=== PATIENT | female | born 1995 | race Caucasian/White ===

== ENCOUNTER 2025-08-28 16:16 | Emergency (ER) | payer OTHER, SELFPAY ==
--- OUTSIDE RECORDS SUMMARY | 2013-12-24 06:41 | XMS_ITS | Continuity of Care Document ---
Author Organization [facility] Address [address] [place] [address] Phone Care Team Providers Care Call Or Contact Centre Operator Name Role Phone NonClinical, Staff Unavailable Unavailable Problems Condition Type Effective Dates (start - stop) Clini kevin Status Comments No Known Problems Advance Directives Directive Yes / No Effective Date File Name No Information Encounters Encounter Description Practice Location Reason(s) For Visit Diagnoses Date Provider Providers Copied on Encounter [facility], [address], [place], [id number], [place] tel:[phone] [facility] No Information [phone] NonClinical Staff. . Family History Family Member Type Diagnosis Age At Onset No Information Payers Payer name Insurance type Covered alliance party ID Authoriza tion(s) No Information Social History Type Description Quantity Date Captured Comments Sex Female Smoking Status No Information Chief Complaint And Reason For Visit No Information Reason For Referral Reason For Referral No Information History Of Present Illness Encounter Date Complaint History Of Prese nt Illness No Information Functional Status Date Functional Assessmen t No Information Instructions Date Instruction Additional Infor mation No Information Assessments Type Assessment Date No Information Patient Care Teams Name Effective Dates (start - stop) Status Members No Information
--- OUTSIDE RECORDS SUMMARY | 2025-01-08 11:15 | XMS_ITS ---
Author Organization [facility] Address [address] [facility] [place] [address] Care Team Providers Care Track Machine Operator Repairer Name Role Phone Rodger Ortiz MD Primary Care Provider Yo Arriaga Unavailable [phone] Dagoberto Giron JR Unavailable [phone] REASON FOR VISIT [id number] 1 week f/u - Chronic Fatigue Medications Medication SIG (Take, Route, Frequency, Duration) Notes Start Date End Date Status CeleXA 10 MG Tablet 1 tablet Orally daily; Duration: 30 days 12/18/2024 Not-Taking Senna 8.6 MG Tablet 2 tablets at bedtime as needed Orally Once a day Not-Taking Fludrocortisone Acetate 0.1 MG Tablet 2 tablets Orally Once a day; Duration: 30 days 01/07/2025 07/06/2025 Active Dicyclomine HCl 10 MG Capsule 1 tablet Orally one time a day Active Encounters Encounter Location Date Provider Diagnosis [facility] [address] [place] [address], [place] [address] 01/08/2025 Dagoberto Giron Chronic fatigue R53.82 ; Fever of unknown origin (FUO) R50.9 ; Malaise R53.81 ; Unspecified abdominal pain R10.9 and Other chronic pain G89.29 Assessments Encounter Date Diagnosis (ICD Code) Assessment Notes Treatment Notes Treatment Clinical Notes Section Notes 01/08/2025 Chronic fatigue (ICD-10 - R53.82) 1. 28 yo female with chronic malaise, fatigue, fever, leading to inability to hold a long time job 2. Unable to get weight as patient felt dizzy. - screening KRISTY positive, but Quanative KRISTY negative. CRP and FRONT DESK SUPERVISOR both negative. -repeat KRISTY 12-18-24 results reviewed w/patient 3. CT chest/abdomen was denied by insurance. 4. Suspect depression, anxiety, as co-morbid factors. -seeing a therapist, possible diagnosis of Bipolar disorder - will defer depression meds to therapist at pt request. 5. Chest Xray ordered 01-01-25, not done as of 01-08-25 LABS: 08-20-24 W 7.2, CRP <.40, FRONT DESK SUPERVISOR .68, FERRITIN 32, KRISTY detected. Quanative KRISTY negative, BC no growth at 5 days, Quant TB neg, TSH .817 09-07-24 EBV 217.0, CMV DNA-PCR not detected 12-19-24 W 5.5, Stave Grader .60, CRP <.50, KRISTY detected 01-07-25 W 8.2, Stave Grader .66, CRP <.50 Follow up: Scribed by Cecelia Sotelo 01/08/2025 Fever of unknown origin (FUO) (ICD-10 - R50.9) 1. 28 yo female with chronic malaise, fatigue, fever, leading to inability to hold a long time job 2. Unable to get weight as patient felt dizzy. - screening KRISTY positive, but Quanative KRISTY negative. CRP and FRONT DESK SUPERVISOR both negative. -repeat KRISTY 12-18-24 results reviewed w/patient 3. CT chest/abdomen was denied by insurance. 4. Suspect depression, anxiety, as co-morbid factors. -seeing a therapist, possible diagnosis of Bipolar disorder - will defer depression meds to therapist at pt request. 5. Chest Xray ordered 01-01-25, not done as of 01-08-25 LABS: 08-20-24 W 7.2, CRP <.40, FRONT DESK SUPERVISOR .68, FERRITIN 32, KRISTY detected. Quanative KRISTY negative, BC no growth at 5 days, Quant TB neg, TSH .817 09-07-24 EBV 217.0, CMV DNA-PCR not detected 12-19-24 W 5.5, Stave Grader .60, CRP <.50, KRISTY detected 01-07-25 W 8.2, Stave Grader .66, CRP <.50 Follow up: Scribed by Cecelia Sotelo 01/08/2025 Malaise (ICD-10 - R53.81) 1. 28 yo female with chronic malaise, fatigue, fever, leading to inability to hold a long time job 2. Unable to get weight as patient felt dizzy. - screening KRISTY positive, but Quanative KRISTY negative. CRP and FRONT DESK SUPERVISOR both negative. -repeat KRISTY 12-18-24 results reviewed w/patient 3. CT chest/abdomen was denied by insurance. 4. Suspect depression, anxiety, as co-morbid factors. -seeing a therapist, possible diagnosis of Bipolar disorder - will defer depression meds to therapist at pt request. 5. Chest Xray ordered 01-01-25, not done as of 01-08-25 LABS: 08-20-24 W 7.2, CRP <.40, FRONT DESK SUPERVISOR .68, FERRITIN 32, KRISTY detected. Quanative KRISTY negative, BC no growth at 5 days, Quant TB neg, TSH .817 09-07-24 EBV 217.0, CMV DNA-PCR not detected 12-19-24 W 5.5, Stave Grader .60, CRP <.50, KRISTY detected 01-07-25 W 8.2, Stave Grader .66, CRP <.50 Follow up: Scribed by Cecelia Sotelo 01/08/2025 Unspecified abdominal pain (ICD-10 - R10.9) 1. 28 yo female with chronic malaise, fatigue, fever, leading to inability to hold a long time job 2. Unable to get weight as patient felt dizzy. - screening KRISTY positive, but Quanative KRISTY negative. CRP and FRONT DESK SUPERVISOR both negative. -repeat KRISTY 12-18-24 results reviewed w/patient 3. CT chest/abdomen was denied by insurance. 4. Suspect depression, anxiety, as co-morbid factors. -seeing a therapist, possible diagnosis of Bipolar disorder - will defer depression meds to therapist at pt request. 5. Chest Xray ordered 01-01-25, not done as of 01-08-25 LABS: 08-20-24 W 7.2, CRP <.40, FRONT DESK SUPERVISOR .68, FERRITIN 32, KRISTY detected. Quanative KRISTY negative, BC no growth at 5 days, Quant TB neg, TSH .817 09-07-24 EBV 217.0, CMV DNA-PCR not detected 12-19-24 W 5.5, Stave Grader .60, CRP <.50, KRISTY detected 02-11-25 W 8.2, Stave Grader .66, CRP <.50 Follow up: Scribed by Cecelia Sotelo 01/08/2025 Other chronic pain (ICD-10 - G89.29) 1. 28 yo female with chronic malaise, fatigue, fever, leading to inability to hold a long time job 2. Unable to get weight as patient felt dizzy. - screening KRISTY positive, but Quanative KRISTY negative. CRP and FRONT DESK SUPERVISOR both negative. -repeat KRISTY 12-18-24 results reviewed w/patient 3. CT chest/abdomen was denied by insurance. 4. Suspect depression, anxiety, as co-morbid factors. -seeing a therapist, possible diagnosis of Bipolar disorder - will defer depression meds to therapist at pt request. 5. Chest Xray ordered 01-01-25, not done as of 01-08-25 LABS: 08-20-24 W 7.2, CRP <.40, FRONT DESK SUPERVISOR .68, FERRITIN 32, KRISTY detected. Quanative KRISTY negative, BC no growth at 5 days, Quant TB neg, TSH .817 09-07-24 EBV 217.0, CMV DNA-PCR not detected 12-19-24 W 5.5, Stave Grader .60, CRP <.50, KRISTY detected 01-07-25 W 8.2, Stave Grader .66, CRP <.50 Follow up: Scribed by Cecelia Sotelo Plan Of Treatment No Information History and Physical Notes * HPI (History of Present Illness) Category Sub-Category Detail Notes Category Not es Provider Note Ms. Patel, a 28-year-old female, has been referred for chronic fatigue. She feels unwell and has been experiencing weakness, dizziness, and abdominal pain, especially during her monthly period. Despite consulting multiple physicians, she has not received a diagnosis for her condition. 08-20-24; did not get labs, did not get the Ct scan, now add low grade fevers and some PALMA to the diffuse abdominal pain. 09-02-24 doing well but feels like having the start of a cold today. Had holter monitor done by Dr. Ortiz at [facility]. Echocardiogram was normal. 12-18-24;just got over COVID, otherwise doing about the same. 01-01-25;feeling dizzy and very tired today. Feels like shes going to faint. 01-08-25; Progress Notes * Sandy PATEL DDOB:[birth year] (30 yo F)Acc No.[id number]:01/08/2025 Progress Notes Patient: Sandy Garcia Provider: Shahana Giron MD :1995 A ge:29 Y S ex:Female Date:01/08/2025 Address:[address] [place] [address], [place], [id number] Pcp:Rodger Ortiz MD Subjective: * Chief Complaints: * 6 [id number] 1 week f/u - Chronic Fatigue * HPI: P temo Note: Ms. Patel, a 28-year-old female, has been referred for chronic fatigue. She feels unwell and has been experiencing weakness, dizziness, and abdominal pain, especially during her monthly period. Despite consulting multiple physicians, she has not received a diagnosis for her condition. 08-20-24; did not get labs, did not get the Ct scan, now add low grade fevers and some PALMA to the diffuse abdominal pain. 09-02-24 doing well but feels like having the start of a cold today. Had holter monitor done by Dr. Ortiz at [facility]. Echocardiogram was normal. 12-18-24;just got over COVID, otherwise doing about the same. 01-01-25;feeling dizzy and very tired today. Feels like shes going to faint. 01-08-25;. * Medications: T akingDicyclomine HCl 10 MG Capsule 1 tablet Orally one time a day Fludrocortisone Acetate 0.1 MG Tablet 2 tablets Orally Once a day , stop date 07/06/2025Taking Dicyclomine HCl 10 MG Capsule 1 tablet Orally one time a day Taking Fludrocortisone Acetate 0.1 MG Tablet 2 tablets Orally Once a day , stop date 07/06/2025Not-TakingCeleXA 10 MG Tablet 1 tablet Orally daily Senna 8.6 MG Tablet 2 tablets at bedtime as needed Orally Once a day Not-Taking CeleXA 10 MG Tablet 1 tablet Orally daily Not-Taking Senna 8.6 MG Tablet 2 tablets at bedtime as needed Orally Once a day Assessment: * Assessment: 1. C hronic fatigue - R53.82 (Primary) 2 . F ever of unknown origin (FUO) - R50.9 3 . M alaise - R53.81 4 . U nspecified abdominal pain - R10.9 5 . O ther chronic pain - G89.29 1. 28 yo female with chronic malaise, fatigue, fever, leading to inability to hold a long time job 2. Unable to get weight as patient felt dizzy. - screening KRISTY positive, but Quanative KRISTY negative. CRP and FRONT DESK SUPERVISOR both negative. -repeat KRISTY 12-18-24 results reviewed w/patient 3. CT chest/abdomen was denied by insurance. 4. Suspect depression, anxiety, as co-morbid factors. -seeing a therapist, possible diagnosis of Bipolar disorder - will defer depression meds to therapist at pt request. 5. Chest Xray ordered 01-01-25, not done as of 01-08-25 LABS: 08-20-24 W 7.2, CRP <.40, FRONT DESK SUPERVISOR .68, FERRITIN 32, KRISTY detected. Quanative KRISTY negative, BC no growth at 5 days, Quant TB neg, TSH .817 09-07-24 EBV 217.0, CMV DNA-PCR not detected 12-19-24 W 5.5, Stave Grader .60, CRP <.50, KRISTY detected 01-07-25 W 8.2, Stave Grader .66, CRP <.50 Follow up: Scribed by Cecelia Sotelo Billing Information: * Procedure Codes: Care Plan Details* * Electronic signature of Jaime Giron JR, MD on 08/28/2025 at 04:22 PM CDT Sign off status: Pending * Provider: Shahana Giron MD Date: 0 01/08/2025 Generated for Nam barragan/Pia/eTransmshirley on: 1 04:22 PM CDT
--- OUTSIDE RECORDS SUMMARY | 2025-01-13 11:15 | XMS_ITS ---
Author Organization [facility] Address [address] [facility] [place] [address] Care Team Providers Care Commercial Technician Name Role Phone Rodger Ortiz MD Primary Care Provider Yo Arriaga Unavailable [phone] Dagoberto Giron JR Unavailable [phone] REASON FOR VISIT [id number] 1 week f/u - Chronic Fatigue Medications Medication SIG (Take, Route, Frequency, Duration) Notes Start Date End Date Status CeleXA 10 MG Tablet 1 tablet Orally daily; Duration: 30 days 12/18/2024 Not-Taking Dicyclomine HCl 10 MG Capsule 1 tablet Orally one time a day Active Senna 8.6 MG Tablet 2 tablets at bedtime as needed Orally Once a day Not-Taking Fludrocortisone Acetate 0.1 MG Tablet 2 tablets Orally Once a day; Duration: 30 days 01/07/2025 07/06/2025 Active Encounters Encounter Location Date Provider Diagnosis [facility] [address] [place] [address], [place] [address] 01/13/2025 Dagoberto Giron Chronic fatigue R53.82 ; Fever of unknown origin (FUO) R50.9 ; Malaise R53.81 ; Unspecified abdominal pain R10.9 and Other chronic pain G89.29 Assessments Encounter Date Diagnosis (ICD Code) Assessment Notes Treatment Notes Treatment Clinical Notes Section Notes 01/13/2025 Chronic fatigue (ICD-10 - R53.82) 1. 28 yo female with chronic malaise, fatigue, fever, leading to inability to hold a long time job 2. Unable to get weight as patient felt dizzy. - screening KRISTY positive, but Quanative KRISTY negative. CRP and PRODUCT SAFETY ASSOCIATE both negative. -repeat KRISTY 12-18-24 results reviewed w/patient 3. CT chest/abdomen was denied by insurance. 4. Suspect depression, anxiety, as co-morbid factors. -seeing a therapist, possible diagnosis of Bipolar disorder - will defer depression meds to therapist at pt request. 5. Chest Xray ordered 01-01-25, not done as of 01-09-25 LABS: 08-20-24 W 7.2, CRP <.40, PRODUCT SAFETY ASSOCIATE .68, FERRITIN 32, KRISTY detected. Quanative KRISTY negative, BC no growth at 5 days, Quant TB neg, TSH .817 09-07-24 EBV 217.0, CMV DNA-PCR not detected 12-19-24 W 5.5, Fish Farm Laborer .60, CRP <.50, KRISTY detected 01-07-25 W 8.2, Fish Farm Laborer .66, CRP <.50 Follow up: Scribed by Cecelia Sotelo 01/13/2025 Fever of unknown origin (FUO) (ICD-10 - R50.9) 1. 28 yo female with chronic malaise, fatigue, fever, leading to inability to hold a long time job 2. Unable to get weight as patient felt dizzy. - screening KRISTY positive, but Quanative KRISTY negative. CRP and PRODUCT SAFETY ASSOCIATE both negative. -repeat KRISTY 12-18-24 results reviewed w/patient 3. CT chest/abdomen was denied by insurance. 4. Suspect depression, anxiety, as co-morbid factors. -seeing a therapist, possible diagnosis of Bipolar disorder - will defer depression meds to therapist at pt request. 5. Chest Xray ordered 01-01-25, not done as of 01-09-25 LABS: 08-20-24 W 7.2, CRP <.40, PRODUCT SAFETY ASSOCIATE .68, FERRITIN 32, KRISTY detected. Quanative KRISTY negative, BC no growth at 5 days, Quant TB neg, TSH .817 09-07-24 EBV 217.0, CMV DNA-PCR not detected 12-19-24 W 5.5, Fish Farm Laborer .60, CRP <.50, KRISTY detected 01-07-25 W 8.2, Fish Farm Laborer .66, CRP <.50 Follow up: Scribed by Cecelia Sotelo 01/13/2025 Malaise (ICD-10 - R53.81) 1. 28 yo female with chronic malaise, fatigue, fever, leading to inability to hold a long time job 2. Unable to get weight as patient felt dizzy. - screening KRISTY positive, but Quanative KRISTY negative. CRP and PRODUCT SAFETY ASSOCIATE both negative. -repeat KRISTY 12-18-24 results reviewed w/patient 3. CT chest/abdomen was denied by insurance. 4. Suspect depression, anxiety, as co-morbid factors. -seeing a therapist, possible diagnosis of Bipolar disorder - will defer depression meds to therapist at pt request. 5. Chest Xray ordered 01-01-25, not done as of 01-09-25 LABS: 08-20-24 W 7.2, CRP <.40, PRODUCT SAFETY ASSOCIATE .68, FERRITIN 32, KRISTY detected. Quanative KRISTY negative, BC no growth at 5 days, Quant TB neg, TSH .817 09-07-24 EBV 217.0, CMV DNA-PCR not detected 12-19-24 W 5.5, Fish Farm Laborer .60, CRP <.50, KRISTY detected 01-07-25 W 8.2, Fish Farm Laborer .66, CRP <.50 Follow up: Scribed by Cecelia Sotelo 01/13/2025 Unspecified abdominal pain (ICD-10 - R10.9) 1. 28 yo female with chronic malaise, fatigue, fever, leading to inability to hold a long time job 2. Unable to get weight as patient felt dizzy. - screening KRISTY positive, but Quanative KRISTY negative. CRP and PRODUCT SAFETY ASSOCIATE both negative. -repeat KRISTY 12-18-24 results reviewed w/patient 3. CT chest/abdomen was denied by insurance. 4. Suspect depression, anxiety, as co-morbid factors. -seeing a therapist, possible diagnosis of Bipolar disorder - will defer depression meds to therapist at pt request. 5. Chest Xray ordered 01-01-25, not done as of 01-09-25 LABS: 08-20-24 W 7.2, CRP <.40, PRODUCT SAFETY ASSOCIATE .68, FERRITIN 32, KRISTY detected. Quanative KRISTY negative, BC no growth at 5 days, Quant TB neg, TSH .817 09-07-24 EBV 217.0, CMV DNA-PCR not detected 12-19-24 W 5.5, Fish Farm Laborer .60, CRP <.50, KRISTY detected 02-11-25 W 8.2, Fish Farm Laborer .66, CRP <.50 Follow up: Scribed by Cecelia Sotelo 01/13/2025 Other chronic pain (ICD-10 - G89.29) 1. 28 yo female with chronic malaise, fatigue, fever, leading to inability to hold a long time job 2. Unable to get weight as patient felt dizzy. - screening KRISTY positive, but Quanative KRISTY negative. CRP and PRODUCT SAFETY ASSOCIATE both negative. -repeat KRISTY 12-18-24 results reviewed w/patient 3. CT chest/abdomen was denied by insurance. 4. Suspect depression, anxiety, as co-morbid factors. -seeing a therapist, possible diagnosis of Bipolar disorder - will defer depression meds to therapist at pt request. 5. Chest Xray ordered 01-01-25, not done as of 01-09-25 LABS: 08-20-24 W 7.2, CRP <.40, PRODUCT SAFETY ASSOCIATE .68, FERRITIN 32, KRISTY detected. Quanative KRISTY negative, BC no growth at 5 days, Quant TB neg, TSH .817 09-07-24 EBV 217.0, CMV DNA-PCR not detected 12-19-24 W 5.5, Fish Farm Laborer .60, CRP <.50, KRISTY detected 01-07-25 W 8.2, Fish Farm Laborer .66, CRP <.50 Follow up: Scribed by [...] holter monitor done by Dr. Ortiz at [facility]. Echocardiogram was normal. 12-18-24;just got over COVID, otherwise doing about the same. 01-01-25;feeling dizzy and very tired today. Feels like shes going to faint. 01-13-25; f/u visit for chronic fatigue. Saw Dr. Walker on for orthostatic hyportension. Per his notes; 2D echocardiogram was reported as normal recently. Holter study in July showed occasional PACs and PVCs but no significant arrhythmias were noted. She is not anemic with hemoglobin of 13.5. Progress Notes * Sandy PATEL DDOB:[birth year] (30 yo F)Acc No.[id number]:01/13/2025 Progress Notes Patient: Sandy Garcia Provider: Shahana Giron MD :1995 A ge:29 Y S ex:Female Date:01/13/2025 Address:[address] [place] [address], [place], [id number] Pcp:Rodger Ortiz MD Subjective: * Chief Complaints: * 6 [id number] 1 week f/u - Chronic Fatigue * [...] holter monitor done by Dr. Ortiz at [facility]. Echocardiogram was normal. 12-18-24;just got over COVID, otherwise doing about the same. 01-01-25;feeling dizzy and very tired today. Feels like shes going to faint. 01-13-25; f/u visit for chronic fatigue. Saw Dr. Walker on for orthostatic hyportension. Per his notes; 2D echocardiogram was reported as normal recently. Holter study in July showed occasional PACs and PVCs but no significant arrhythmias were noted. She is not anemic with hemoglobin of 13.5. * Medications: T akingDicyclomine HCl 10 MG [...] positive, but Quanative KRISTY negative. CRP and PRODUCT SAFETY ASSOCIATE both negative. -repeat KRISTY 12-18-24 results reviewed w/patient 3. CT chest/abdomen was denied by insurance. 4. Suspect depression, anxiety, as co-morbid factors. -seeing a therapist, possible diagnosis of Bipolar disorder - will defer depression meds to therapist at pt request. 5. Chest Xray ordered 01-01-25, not done as of 01-09-25 LABS: 08-20-24 W 7.2, CRP <.40, PRODUCT SAFETY ASSOCIATE .68, FERRITIN 32, KRISTY detected. Quanative KRISTY negative, BC no growth at 5 days, Quant TB neg, TSH .817 09-07-24 EBV 217.0, CMV DNA-PCR not detected 12-19-24 W 5.5, Fish Farm Laborer .60, CRP <.50, KRISTY detected 01-07-25 W 8.2, Fish Farm Laborer .66, CRP <.50 Follow up: Scribed by Cecelia Sotelo Billing Information: * Procedure Codes: Care Plan Details* * Electronic signature of Jaime Giron JR, MD on 08/28/2025 at 04:23 PM CDT Sign off status: Pending * Provider: Shahana Giron MD Date: 0 01/13/2025 Generated for Nam barragan/Pia/Misha on: 1 04:23 PM CDT
--- OUTSIDE RECORDS SUMMARY | 2025-03-17 09:00 | XMS_ITS ---
Author Organization [facility] Address [address] [place] [address] Care Team Providers Care Post Graduate Intern Name Role Phone Rodger Ortiz MD Primary Care Provider UnavailEstella Carmona Unavailable [phone] REASON FOR VISIT 2 mo per 01/07/25 estella ov/lg Encounters Encounter Location Date Provider Diagnosis [facility] [address] [place] [address], [place] [address] 03/17/2025 Estella Denise Plan Of Treatment No Information Progress Notes * Sandy MOREL DDOB:[birth year] (30 yo F)Acc No.[id number]:03/17/2025 Progress Notes Patient: Marlen sheffield Sandy Mckenzie Provider: Octaviano Walker M.D. :1995 A ge:29 Y S ex:Female Date:03/17/2025 Address:[address] [place] [address], [id number] Pcp:Rodger Ortiz MD Subjective: * Chief Complaints: * 2 mo per 01/07/25 estella ov/lg Billing Information: * Procedure Codes: * Electronic signature of Estella Walker MD on 08/28/2025 at 04:23 PM CDT Sign off status: Pending * Provider: Octaviano Walker M.D. Date: 0 03/17/2025 Generated for Lindai ng/Pia/eTransmitting on: 1 04:23 PM CDT
[2025-08-28 16:20] VITALS: BP 102/69; PULSE 99; RESP 18; TEMP 36.6; O2SAT 97; BMI 22.3
--- OUTSIDE RECORDS SUMMARY | 2025-08-28 16:23 | XMS_ITS | Patient Health Record ---
Author Organization [facility] Address [address] [place] [address] Care Team Providers Care Brick Pointer Name Role Phone Rodger Ortiz MD Primary Care Provider UnavailYo Carmona Unavailable [phone] Migration, Provider Unavailable Unavailable Dagoberto Giron JR Unavailable [phone] Bonifacio Figueroa Unavailable [phone] Allergies Allergen (clinical drug ingredient) Drug/Non Drug Allergy documented on EMR Reaction Allergy Type Onset Date Status Wasp Venom Unknown Drug Allergy Active Cat dander Cat Dander Unknown Allergy Active Dog dander Dog Dander Unknown Allergy Active metoprolol Metoprolol nausea and vomiting Drug Allergy Active prednisone Prednisone Unknown Drug Allergy Activ e coconut allergenic extract Coconut (Diagnostic) Unknown Drug Allergy Active Results Component Value Reference Range Flag Notes Cortisol Level Serum [id number] Reviewed date:09/16/2024 12:05:31 PM Interpretation: Performing Lab: Notes/Report: Cortisol Level 10.16 Echo Complete with Bubble St udy [id number] Reviewed date:09/23/2024 01:46:44 PM Interpretation: Performing Lab: Notes/Report: CRP [id number] Reviewed date:01/29/2025 08:16:28 AM Interpretation: Performing Lab: Notes/Report: Diagnosis Description: Chronic fatigue, unspecified CRP <.50 .40-1.00 MG/DL Miscellaneous Test Reviewed date:12/24/2024 08:44:54 AM Interpretation: Performing Lab: Notes/Report: Misc Sent to Ref Lab Name of Misc Test kristy reflex NA Electrocardiogram (EKG) - 93 000 Reviewed date:09/05/2024 04:47:25 PM Interpretation: Performing Lab: Notes/Report: Comprehensive Metabolic Pane l (CMP) 58130 Reviewed date:01/30/2025 10:37:42 AM Interpretation: Performing Lab: Notes/Report: Diagnosis Description: Chronic fatigue, unspecified Glucose Serum 53 71-110 MG/DL LOW Testing p erformed at [facility], [address] [place] [address] [place] [address]. CLIA ID#: [id number] BUN 18 7-21 MG/DL Creat .66 .51-1.17 MG/DL C-hpmszo-p-benzoquinone imine (NAPQI) is a metabolite of acetaminophen, NAPQI concentrations of apparoximately 10 mg/L correlation to toxic levels of acetaminophen demonstrates a greater than or equil to 10% change in results. NAPQI concentrations greater than this may lead to falsely depressed results for patient samples. Use of this assay is not recommended for patients undergoing treatment with phenindione, due to the potential for falsely depressed results. GFR 123.1 NA Calculation pe rformed from GFR calculator provided by the [employer]. Glomerular Filtration rate(GRF) is the best overall index of kidney function. Normal GFR varies according to age,sex, body size, and declines with age. The [employer] recommends using the CKD-EPI Creatinine Equation(2020) to estimate GFR. BUN/Creat Ratio 27.3 12.0-20.0 % HI Total Protein 7.3 5.8-8.0 G/DL Albumin 4.7 3.2-4.8 G/DL Globulin 2.5 2.3-3.5 G/DL Alb/Glob 1.9 0.8-2.2 Calcium 9.5 8.7-10.4 MG/DL Sodium 141 136-145 MMOL/L Potassium 3.6 3.5-5.1 MMOL/L Chloride 104 98-107 MMOL/L CO2 27.7 20.0-31.0 MMOL/L Anion Gap 13 5-15 Alk Phos 58 46-116 Bili Total .6 .3-1.2 MG/DL Use of this assay is not recommended for patients undergoing treatment with eltrombopag due to the potential for falsely elevated results. AST/SGOT 17 15-37 UNIT/L ALT/SGPT 28 12-78 UNIT/L Osmo Serum,Calculated 291 280-300 MOSM/KG CBC w\ Auto Diff [id number] Reviewed date:01/30/2025 10:37:38 AM Interpretation: Performing Lab: Notes/Report: Diagnosis Description: Chronic fatigue, unspecified WBC 8.2 4.5-11.0 X10'3 RBC 4.81 4.00-5.20 X10'6 Hgb 13.6 12.0-16.0 G/DL Hct 42.6 36.0-46.0 % MCV 88.6 80.0-100.0 FL MCH 28.3 27.0-31.0 PG MCHC 31.9 31.0-37.0 G/DL Platelet 328 150-400 X10'3 RDW-SD 43.7 35.0-49.0 FL RDW-CV 13.2 12.2-15.6 % MPV 10.0 9.2-12.0 FL Neutro Auto% 63.0 40.0-70.0 % Lymph Auto% 23.0 22.0-44.0 % Merrick Auto% 11.6 3.0-7.0 % HI Eos Auto% 1.5 2.0-4.0 % LOW Baso Auto% 0.7 0.0-1.0 % Imm Gran% .2 .0-.4 % Neutro Abs 5.15 .80-7.70 Absolute Neutrophil Count 5150 NA Lymph Abs 1.88 .10-4.10 Merrick Abs .95 .20-1.00 Eos Abs .12 .00-.40 Baso Abs .06 .00-.20 Imm Gran Abs .02 .00-.10 NRBC# .00 .00-.20 X10'3 NRBC% .00 .00-.20 /100 intact WBC's CRP [id number] Reviewed date:12/25/2024 11:15:20 AM Interpretation: Performing Lab: Notes/Report: Diagnosis Description: Chronic fatigue, unspecified CRP <.50 .40-1.00 MG/DL Comprehensive Metabolic Pane l (CMP) 18618 Reviewed date:12/25/2024 11:15:34 AM Interpretation: Performing Lab: Notes/Report: Diagnosis Description: Chronic fatigue, unspecified Glucose Serum 87 71-110 MG/DL Testing p erformed at [facility], [address] [place] [address] Dr. Nancy Ville [id number]. CLIA ID#: [id number] BUN 12 7-21 MG/DL Creat .60 .51-1.17 MG/DL S-kwhxvw-r-benzoquinone imine (NAPQI) is a metabolite of acetaminophen, NAPQI concentrations of apparoximately 10 mg/L correlation to toxic levels of acetaminophen demonstrates a greater than or equil to 10% change in results. NAPQI concentrations greater than this may lead to falsely depressed results for patient samples. Use of this assay is not recommended for patients undergoing treatment with phenindione, due to the potential for falsely depressed results. GFR 125.9 NA Calculation pe rformed from GFR calculator provided by the [employer]. Glomerular Filtration rate(GRF) is the best overall index of kidney function. Normal GFR varies according to age,sex, body size, and declines with age. The National [employer] recommends using the CKD-EPI Creatinine Equation(2020) to estimate GFR. BUN/Creat Ratio 20.0 12.0-20.0 % Total Protein 6.9 5.8-8.0 G/DL Albumin 4.3 3.2-4.8 G/DL Globulin 2.6 2.3-3.5 G/DL Alb/Glob 1.7 0.8-2.2 Calcium 9.1 8.7-10.4 MG/DL Sodium 139 136-145 MMOL/L Potassium 4.7 3.5-5.1 MMOL/L Chloride 104 98-107 MMOL/L CO2 23.6 20.0-31.0 MMOL/L Anion Gap 16 5-15 HI Alk Phos 52 46-116 Bili Total .6 .3-1.2 MG/DL Use of this assay is not recommended for patients undergoing treatment with eltrombopag due to the potential for falsely elevated results. AST/SGOT 43 15-37 UNIT/L HI ALT/SGPT 42 12-78 UNIT/L Osmo Serum,Calculated 287 280-300 MOSM/KG CBC w\ Auto Diff [id number] Reviewed date:12/25/2024 11:15:31 AM Interpretation: Performing Lab: Notes/Report: Diagnosis Description: Chronic fatigue, unspecified WBC 5.5 4.5-11.0 X10'3 RBC 4.53 4.00-5.20 X10'6 Hgb 12.8 12.0-16.0 G/DL Hct 41.4 36.0-46.0 % MCV 91.4 80.0-100.0 FL MCH 28.3 27.0-31.0 PG MCHC 30.9 31.0-37.0 G/DL LOW Platelet 280 150-400 X10'3 RDW-SD 46.3 35.0-49.0 FL RDW-CV 13.8 12.2-15.6 % MPV 10.6 9.2-12.0 FL Neutro Auto% 56.3 40.0-70.0 % Lymph Auto% 29.8 22.0-44.0 % Merrick Auto% 10.8 3.0-7.0 % HI Eos Auto% 2.0 2.0-4.0 % Baso Auto% 0.9 0.0-1.0 % Imm Gran% .2 .0-.4 % Neutro Abs 3.08 .80-7.70 Absolute Neutrophil Count 3080 NA Lymph Abs 1.63 .10-4.10 Merrick Abs .59 .20-1.00 Eos Abs .11 .00-.40 Baso Abs .05 .00-.20 Imm Gran Abs .01 .00-.10 NRBC# .00 .00-.20 X10'3 NRBC% .00 .00-.20 /100 intact WBC's KRISTY IGG SCREEN W/ RFX [id number] Reviewed date:12/25/2024 11:15:28 AM Interpretation: Performing Lab: Notes/Report: Diagnosis Description: Chronic fatigue, unspecified KRISTY IgG Detected KRISTY DAQUAN assays have been reported to have lower sensitivity than KRISTY IFA for systemic autoimmune rheumatic diseases(SARD). Negative results do not necessarily rule out SARD. The GSD Antinuclear Antibody Screening test is qualitative enzyme immunoassay (EIA) intended to screen for the presence of antinuclear antibodies (KRISTY) in human serum, against double stranded DNA (dsDNA,nDNA), histone, SS-A/Ro, SS-B/La, Sm, Sm/MACHINE WIPER,SCL-70,Swati-1, and ecntromeric antigens, along with sera positive for immunofluorescent (IFA) HEp-2 KRISTY. CMV DNA-PCR QUANT [id number] Reviewed date:09/10/2024 05:57:38 PM Interpretation: Performing Lab: Notes/Report: Diagnosis Description: Fever, unspecified CMV Qnt NAAT Plasma IU/mL Not Detected NA CMV Qnt NAAT Plasma Log IU/mL Not Detected NA CMV Qnt NAAT Plasma Interp Not Detected Not Detected NA INTERPRETIVE INFORMATION: CMV by Quantitative NAAT, Plasma The quantitative range of this test is 1.54 - 7.00 log IU/mL (34.5 - 10,000,000 IU/mL). An interpretation of Not Detected does not rule out the presence of inhibitors or CMV DNA concentration below the level of detection of the assay. Care should be taken in the interpretation of any single viral load determination. International standardization has improved comparability of assay results across laboratories, but discrepancies still exist due to commutability issues with the standard. Performed By: [facility] [address] [place] [id number] Specifications Writer: Trevon Mina MD, PhD CLIA Number: [id number] EBV Antibody Panel 72873, 86 665, 70518, 00365 Reviewed date:09/10/2024 05:57:48 PM Interpretation: Performing Lab: Notes/Report: Diagnosis Description: Fever, unspecified EBV Ab To Capsid Ag IgG 217.0 0.0-21.9 HI INTERPRETIVE INFORMATION: Hesham-Nava Virus Antibody to Viral Capsid Antigen, IgG 17.9 U/mL or less.......Not Detected 18.0-21.9 U/mL..........Indetermin ate - Repeat testing in 10-14 days may be helpful. 22.0 U/mL or greater....Detected EBV Ab To Nuclear Ag IgG 391.0 0.0-21.9 HI INTERPRETIVE INFORMATION: Hesham-Nava Virus Antibody to Nuclear Antigen, IgG 17.9 U/mL or less.......Not Detected 18.0-21.9 U/mL..........Indetermin ate - Repeat testing in 10-14 days may be helpful. 22.0 U/mL or greater....Detected EBV Ab To Early(D) Ag IgG 5.9 0.0-10.9 NA INTERPRETIVE INFORMATION: Hesham-Nava Virus Antibody to Early D Antigen (EA-D), IgG 8.9 U/mL or less........Not Detected 9.0-10.9 U/mL...........Indetermi antoni - Repeat testing in 10-14 days may be helpful. 11.0 U/mL or greater....Detected Performed By: [facility] [address] [place] [address] Specifications Writer: Trevon Mina MD, PhD CLIA Number: [id number] Reason For Referral No Information Medications Medication SIG (Take, Route, Frequency, Duration) Notes Start Date End Date Status CeleXA 10 MG Tablet 1 tablet Orally viky y; Duration: 30 days 12/18/2024 Not-Taking Dicyclomine HCl 10 MG Capsule 1 tablet Orally one time a day Active Senna 8.6 MG Tablet 2 tablets at bedtime as needed Orally Once a day Not-Taking Immunizations Vaccine Route Administration Date Status Comme nts Influenza (whole), CPT 58235 Inactive Unknown 08/27/2017 Administered Influenza (whole), CPT 58678 Inactive Unknown 10/03/2018 Administered Social History Tobacco Use: Social History Observation Description Date Details (start date - stop date) Never Smoker NA - NA Social History Depression Screening Social Info Question Answer Notes PHQ-9 Little interest or pleasure in doing thin gs Several days Feeling down, depressed, or hopeless Several day s Trouble falling or staying a sleep, or sleeping too much Nearly every day Feeling tired or having little energy Several da ys Poor appetite or overeating Several days Feeling bad about yourself, or that you are a failure, or have let yourself or your family down Nearly every day Trouble concentrating on thi ngs, such as reading the newspaper or watching television More than half the days Moving or speaking so slowly that other people could have noticed. Or the opposite ? being so fidgety or restless that you have been moving around a lot more than usual Not at all Thoughts that you would be b fransisca off , or of hurting yourself in some way More than half the days (Consider Suicide Assessment Risk) Total Score 14 Interpretation Moderate Depression Drugs/Alcohol: Social Info Question Answer Notes Alcohol Screen (Audit-C) Did you have a drink containing alcohol in the past year? No Points 0 Interpretation Negative Drugs Have you used drugs other than those for medical reasons in the past 12 months? No Caffeine Intake: maybe one soda a week Tobacco Use: Social Info Question Answer Notes Tobacco Control (Standard) Tobacco use: Nonsmoker Additional Details Category Social Info Options Details Drugs/Alcohol: Do you drink alcohol? No zzMigrated Social History Migrated Social History Smoking Status:Never smoked tobacco (finding) Problems Problem Type SNOMED Code ICD Code Onset Dates Problem Status W/U Status Risk Notes Problem Chronic pain (37677934) Other chronic pain (G89.29) Active confirmed Problem Anxiety (27849373) Anxiety (F41.9) Active confi rmed Problem Chronic fatigue syndrome (37391601) Chronic fatigue (R53.82) Active confirmed Problem Insomnia (859149170) Insomnia (G47.00) Active confirmed Problem Dysmenorrhea (773344675) Dysmenorrhea (N94.6) Active confirmed Problem Excessive and frequent menstruation (397995068) Menorrhagia with regular cycle (N92.0) Active confirmed Problem Intermenstrual bleeding - irregular (46241101) Menorrhagia with irregular cycle (N92.1) Active confirmed 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) PVC (premature ventricular contraction) (I49.3) Active confirmed Vital Signs Heart Rate 106 /min 01/07/2025 Temperature 98.1 degrees Fahrenheit 01/01/2025 Respiratory Rate 17 /min 01/01/2025 Blood pressure diastolic 60 mm Hg 01/07/2025 Oximetry 97 % 01/07/2025 Weight-kg 54.93 kg 01/07/2025 Height 64 in 01/07/2025 Blood pressure systolic 88 mm Hg 01/07/2025 Weight 121.1 lbs 01/07/2025 BMI 20.78 kg/m2 01/07/2025 Encounters Encounter Location Date Provider Diagnosis [facility] [address] [place] [address], [place] [address] 01/01/2025 Dagoberto Mack Chronic fatigue R53.82 ; Fever of unknown origin (FUO) R50.9 ; Malaise R53.81 ; Unspecified abdominal pain R10.9 and Other chronic pain G89.29 [facility] [address] [place] [address], [place] [address] 12/18/2024 Dagoberto Mack Chronic fatigue R53.82 ; Fever of unknown origin (FUO) R50.9 ; Malaise R53.81 ; Unspecified abdominal pain R10.9 and Other chronic pain G89.29 [facility] [address] [facility] [place] [address] 09/02/2024 Dagoberto Giron Chronic fatigue R53.82 ; Fever of unknown origin (FUO) R50.9 ; Malaise R53.81 ; Unspecified abdominal pain R10.9 and Other chronic pain G89.29 [facility] Cardiovascular [address] [place] [address] 01/07/2025 Yo Alirhayim Orthostatic hypotension I95.[address] [place] [address] 11/06/2024 Yo Alirhayim Fatigue, unspecified type R53.83 ; SOB (shortness of breath) R06.02 and Dizziness R42 [address] [place] [address] 09/05/2024 Bonifacio Henry SOB (shortness of breath) on exertion R06.02 ; Chronic fatigue R53.82 ; Dizziness R42 and Intermittent palpitations R00.[address] [place] [address] 09/24/2024 Yo Alirhayim Migrated_Facility 0 0 09/22/2024 Provider Migration Migrated_Facility 0 0 09/21/2024 Provider Migration [address] [place] [address] 09/25/2024 Yo Alirhayenrico [address] [place] [address] 09/23/2024 Yo Alirhayim Assessments Encounter Date Diagnosis (ICD Code) Assessment Notes Treatment Notes Treatment Clinical Notes Section Notes 09/02/2024 Chronic fatigue (ICD-10 - R53.82) 1. 28 yo female with chronic malaise, fatigue, fever, leading to inability to hold a long time job 2. abdominal pain, and weight loss unintentional, in a patient who already appears cachectic - screening KRISTY positive, but Quanative KRISTY negative. CRP and RACE ENGINE BUILDER both negative. 3. 1st tier w/u (see lab) for chronic fatigue and malaise was done. Will do labs for Hesham Nava Virus, CMV and Lyme 4. CT chest/abdomen was denied by insurance. - FUO, diffuse abdominal pain, unintentional weight loss, and PALMA 5. suspect depression, anxiety, as co-morbid factors. LABS: 9-24-24 W 7.2, CRP <.40, RACE ENGINE BUILDER .68, FERRITIN 32, KRISTY detected. Quanative KRISTY negative. F/U in 3months w/labs CBC,CMP AND CRP prior to appt. Scribed by Cecelia Sotelo 09/02/2024 Fever of unknown origin (FUO) (ICD-10 - R50.9) 1. 28 yo female with chronic malaise, fatigue, fever, leading to inability to hold a long time job 2. abdominal pain, and weight loss unintentional, in a patient who already appears cachectic - screening KRISTY positive, but Quanative KRISTY negative. CRP and RACE ENGINE BUILDER both negative. 3. 1st tier w/u (see lab) for chronic fatigue and malaise was done. Will do labs for Hesham Nava Virus, CMV and Lyme 4. CT chest/abdomen was denied by insurance. - FUO, diffuse abdominal pain, unintentional weight loss, and PALMA 5. suspect depression, anxiety, as co-morbid factors. LABS: 9-24-24 W 7.2, CRP <.40, RACE ENGINE BUILDER .68, FERRITIN 32, KRISTY detected. Quanative KRISTY negative. F/U in 3months w/labs CBC,CMP AND CRP prior to appt. Scribed by Cecelia Sotelo 11/06/2024 SOB (shortness of breath) (ICD-10 - R06.02) ECG: sinus tachycardia, HR 111 bpm , right axis deviation. 1. Exertional fatigue-associated with a history of fevers. Denies any drug use. Her PCP has ordered various lab investigations as part of her workup. TSH was normal. Will defer to PCP. Echocardiogram was within normal limits .2. Shortness of breath-2D echocardiogram was reported as normal recently. Holter study in July showed occasional PACs and PVCs but no significant arrhythmias were noted. She is not anemic with hemoglobin of 13.5. 3. Dizziness-I am not sure whether this is related to her mild orthostasis. Serum sodium was normal. I had asked her to keep a home blood pressure diary but she did not bring it with her today. If she is hypotensive, I may consider addition of fludrocortisone or midodrine in the next appointment.I am not sure that this will help her symptoms though. Follow-up in 11/06/2024 Fatigue, unspecified type (ICD-10 - R53.83) ECG: sinus tachycardia, HR 111 bpm , right axis deviation. 1. Exertional fatigue-associated with a history of fevers. Denies any drug use. Her PCP has ordered various lab investigations as part of her workup. TSH was normal. Will defer to PCP. Echocardiogram was within normal limits .2. Shortness of breath-2D echocardiogram was reported as normal recently. Holter study in July showed occasional PACs and PVCs but no significant arrhythmias were noted. She is not anemic with hemoglobin of 13.5. 3. Dizziness-I am not sure whether this is related to her mild orthostasis. Serum sodium was normal. I had asked her to keep a home blood pressure diary but she did not bring it with her today. If she is hypotensive, I may consider addition of fludrocortisone or midodrine in the next appointment.I am not sure that this will help her symptoms though. Follow-up in 12/18/2024 Chronic fatigue (ICD-10 - R53.82) 1. 28 yo female with chronic malaise, fatigue, fever, leading to inability to hold a long time job 2. Wt gain over past 3 weeks - screening KRISTY positive, but Quanative KRISTY negative. CRP and RACE ENGINE BUILDER both negative. -repeat KRISTY 12-18-[address] chest/abdomen was denied by insurance. 4. suspect depression, anxiety, as co-morbid factors. -seeing a therapist, possible diagnosis of Bipolar disorder -12-18-24 start on Celexa 10mg 1QD 5. Physical exam 12-18-24 completely normal - 12-18-24 Recently got over COVID, was sick for 3 weeks LABS: 08-20-24 W 7.2, CRP <.40, RACE ENGINE BUILDER .68, FERRITIN 32, KRISTY detected. Quanative KRISTY negative, BC no growth at 5 days, Quant TB neg, TSH .817 09-07-24 EBV 217.0, CMV DNA-PCR not detected Follow up: 2 weeks Scribed by Cecelia Sotelo 01/07/2025 Orthostatic hypotension (ICD-10 - I95.1) Previous ECG: sinus tachycardia, HR 111 bpm , right axis deviation. 1. Orthostatic dizziness-home BP readings generally running low. She will continue with the home blood pressure diary. Needs to buy a new machine. Start fludrocortisone 0.2 mg daily. 2. Exertional fatigue-improved to some degree. Denies any drug use. Her PCP has ordered various lab investigations as part of her workup. TSH was normal. Will defer to PCP. 3. Shortness of breath-2D echocardiogram was reported as normal recently. Holter study in July showed occasional PACs and PVCs but no significant arrhythmias were noted. She is not anemic with hemoglobin of 13.5. Follow up in two months. 01/01/2025 Chronic fatigue (ICD-10 - R53.82) 1. 28 yo female with chronic malaise, fatigue, fever, leading to inability to hold a long time job 2. Unable to get weight as patient felt dizzy. - screening KRISTY positive, but Quanative KRISTY negative. CRP and RACE ENGINE BUILDER both negative. -repeat KRISTY 12-18-24 results reviewed w/patient 3. CT chest/abdomen was denied by insurance. 4. Suspect depression, anxiety, as co-morbid factors. -seeing a therapist, possible diagnosis of Bipolar disorder -01-01-25 will defer depression meds to therapist at pt request. 5. Chest Xray ordered 01-01-25 -CBC,CRP,CMP ordered today LABS: 08-20-24 W 7.2, CRP <.40, RACE ENGINE BUILDER .68, FERRITIN 32, KRISTY detected. Quanative KRISTY negative, BC no growth at 5 days, Quant TB neg, TSH .817 09-07-24 EBV 217.0, CMV DNA-PCR not detected 12-19-24 W 5.5, [facility] .60, CRP <.50, KRISTY detected Follow up: 1 week Scribed by Cecelia Sotelo 09/05/2024 Chronic fatigue (ICD-10 - R53.82) ECG: sinus tachycardia, HR 111 bpm , right axis deviation. 1. Exertional fatigue-associated with a history of fevers. Denies any drug use. Her PCP has ordered various lab investigations as part of her workup. TSH was normal. Will defer to PCP. I will obtain a limited echocardiogram with bubbles to rule out intracardiac shunt. 2. Shortness of breath-2D echocardiogram was reported as normal recently. Holter study in July showed occasional PACs and PVCs but no significant arrhythmias were noted. She is not anemic with hemoglobin of 13.5. 3. Dizziness-I am not sure whether this is related to her mild orthostasis. Serum sodium was normal. Nevertheless, I will add a serum cortisol to her labs in case there is a component of adrenal insufficiency. I have encouraged her to increase her salt intake, she may have salty snacks or crisps. I have also asked her to keep a home blood pressure diary over the next 2 months. I may consider addition of fludrocortisone or midodrine in the next appointment. Follow-up in 2 months. 09/05/2024 SOB (shortness of breath) on exertion (ICD-10 - R06.02) ECG: sinus tachycardia, HR 111 bpm , right axis deviation. 1. Exertional fatigue-associated with a history of fevers. Denies any drug use. Her PCP has ordered various lab investigations as part of her workup. TSH was normal. Will defer to PCP. I will obtain a limited echocardiogram with bubbles to rule out intracardiac shunt. 2. Shortness of breath-2D echocardiogram was reported as normal recently. Holter study in July showed occasional PACs and PVCs but no significant arrhythmias were noted. She is not anemic with hemoglobin of 13.5. 3. Dizziness-I am not sure whether this is related to her mild orthostasis. Serum sodium was normal. Nevertheless, I will add a serum cortisol to her labs in case there is a component of adrenal insufficiency. I have encouraged her to increase her salt intake, she may have salty snacks or crisps. I have also asked her to keep a home blood pressure diary over the next 2 months. I may consider addition of fludrocortisone or midodrine in the next appointment. Follow-up in 2 months. 09/05/2024 Dizziness (ICD-10 - R42) ECG: sinus tachycardia, HR 111 bpm , right axis deviation. 1. Exertional fatigue-associated with a history of fevers. Denies any drug use. Her PCP has ordered various lab investigations as part of her workup. TSH was normal. Will defer to PCP. I will obtain a limited echocardiogram with bubbles to rule out intracardiac shunt. 2. Shortness of breath-2D echocardiogram was reported as normal recently. Holter study in July showed occasional PACs and PVCs but no significant arrhythmias were noted. She is not anemic with hemoglobin of 13.5. 3. Dizziness-I am not sure whether this is related to her mild orthostasis. Serum sodium was normal. Nevertheless, I will add a serum cortisol to her labs in case there is a component of adrenal insufficiency. I have encouraged her to increase her salt intake, she may have salty snacks or crisps. I have also asked her to keep a home blood pressure diary over the next 2 months. I may consider addition of fludrocortisone or midodrine in the next appointment. Follow-up in 2 months. 01/01/2025 Fever of unknown origin (FUO) (ICD-10 - R50.9) 1. 28 yo female with chronic malaise, fatigue, fever, leading to inability to hold a long time job 2. Unable to get weight as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
[2025-08-28 17:34] VITALS: PULSE 81; O2SAT 99
== END 2025-08-28 17:35 | disposition home or self-care (01) ==
PROVIDERS: Emergency Provider Emergency Medicine; PCP Family Medicine
DX: Z53.21 Procedure and treatment not carried out due to patient leaving prior to being seen by health care provider (principal); L50.9 Urticaria, unspecified
CPT/HCPCS: 99283